=== PATIENT | female | born 1965 | race Caucasian/White ===

== ENCOUNTER → 2017-01-20 | Outpatient (CLI) | payer OTHER | LOC: FIMAGING 10:31 | PROVIDERS: ATTEND Internal Medicine | DX: Z13.820 Encounter for screening for osteoporosis (principal); Z78.0 Asymptomatic menopausal state ==

== ENCOUNTER → 2017-06-07 | Outpatient (CLI) | payer OTHER | LOC: FIMAGING 11:27 | PROVIDERS: ATTEND Internal Medicine | DX: Z12.31 Encounter for screening mammogram for malignant neoplasm of breast (principal) | CPT/HCPCS: G0202 ==